=== PATIENT | male | born 1960 | race Caucasian/White ===

== ENCOUNTER 2019-01-06 19:33 | Observation (INO) | payer OTHER ==
--- NOTE | 2019-01-06 20:01 | ED ---
Syncope/Near Syncope - HPI Summary HPI Summary: This patient is a 58 year old M presenting to [facility] accompanied by son with a chief complaint of syncope that occurred and resolved [employer]. Patient reports he lost consciousness when he was sitting down to eat dinner. The patient rates the pain 0/10 in severity. Symptoms aggravated by nothing. Symptoms alleviated by nothing. Patient reports dizziness, incontinence, gasping for breath, and diaphoresis. Pt denies any fever, chills, erythema of eyes, sore throat, CP, cough, abdominal pain, N/V, dysuria, hematuria, myalgia, edema, or rash. Patient reports having similar symptoms previously. - History Of Current Complaint Chief Complaint: EDNeurologicalDeficit Time Seen by Provider: 01/06/19 19:53 Hx Obtained From: Patient Onset/Duration: Sudden Onset, Lasting Minutes, Still Present Timing: Intermittent Episode Lasting - 30 seconds Context: Witnessed Activity At Onset: At Rest Associated Head Trauma: No Aggravating Factor(s): Nothing Alleviating Factor(s): Nothing Associated Signs And Symptoms: Other - Positive dizziness, incontinence, gasping for breath, and diaphoresis. Negative fever, chills, erythema of eyes, sore throat, CP, cough, abdominal pain, N/V, dysuria, hematuria, myalgia, edema , or rash. PMH/Surg Hx/FS Hx/Imm Hx Previously Healthy: Yes Opthamlomology History: Denies: Hx Legally Blind EENT History: Denies: Hx Deafness Infectious Disease History: No Infectious Disease History: Denies: Traveled Outside the [place] in Last 30 Days - Family History Known Family History: Positive: Other - COPD and emphysema - Social History Occupation: Unemployed Lives: Alone Alcohol Use: None Hx Tobacco Use: Yes Smoking Status (MU): Current Every Day Smoker Review of Systems Positive: Skin Diaphoresis. Negative: Fever, Chills Negative: Erythema Negative: Sore Throat Negative: Chest Pain Respiratory: Other - Positive "gasping for breath" Negative: Cough Negative: Abdominal Pain, Vomiting, Nausea Positive: incontinence. Negative: dysuria, hematuria Negative: Myalgia, Edema Negative: Rash Neurological: Other - Positive dizziness Positive: Syncope All Other Systems Reviewed And Are Negative: Yes Physical Exam - Summary Physical Exam Summary: Constitutional: Well-developed, Well-nourished, Alert. (-) Distressed Skin: Warm, Dry HENT: Normocephalic; Atraumatic Eyes: Conjunctiva normal Neck: Musculoskeletal ROM normal neck. (-) JVD, (-) Stridor, (-) Tracheal deviation Cardio: Rhythm regular, rate normal, Heart sounds normal; Intact distal pulses; The pedal pulses are 2+ and symmetric. Radial pulses are 2+ and symmetric. (-) Murmur Pulmonary/Chest wall: Effort normal. (-) Respiratory distress, (-) Wheezes, (-) Rales Abd: Soft, (-) tenderness, (-) Distension, (-) Guarding, (-) Rebound Musculoskeletal: (-) Edema Lymph: (-) Cervical adenopathy Neuro: Alert, Oriented x3 Psych: Mood and affect Normal Triage Information Reviewed: Yes Vital Signs On Initial Exam: Initial Vitals Temp Pulse Resp BP Pulse Ox 96.6 F 88 20 100/68 95 01/06/19 19:39 01/06/19 19:39 01/06/19 19:39 01/06/19 19:39 01/06/19 19:39 Vital Signs Reviewed: Yes Diagnostics - Vital Signs Vital Signs Temp Pulse Resp BP Pulse Ox 01/06/19 19:39 96.6 F 88 20 100/68 95 - Laboratory Result Diagrams: 01/06/19 19:52 01/06/19 19:52 Lab Statement: Any lab studies that have been ordered have been reviewed, and results considered in the medical decision making process. - Radiology Chest XR Radiology Interpretation Completed By: ED Physician Summary of Radiographic Findings: CXR reveals, per ED physician, no acute disease - EKG 1945 Cardiac Rate: NL EKG Rhythm: Sinus Rhythm - [address] Segment: Normal Summary of EKG Findings: An EKG taken at 1945 reveals normal sinus rhythm at 89 BPM with no STEMI. Re-Evaluation - Re-Evaluation First Eval Re-Evaluation Time: 20:28 Change: Unchanged Comment: Discussed results and plan of care with pt. Course/Dx Course Of Treatment: This patient is a 58 year old M presenting to [facility] accompanied by son with a chief complaint of syncope that occurred and resolved [employer]PER[employer]OR. Patient reports he lost consciousness when he was sitting down to eat dinner. Physical Exam Findings: Nml. An EKG taken at 1945 reveals normal sinus rhythm at 89 BPM with no STEMI. CXR reveals, per ED physician, no acute disease. Bloodwork obtained. In the ED course the patient was given aspirin. Consult with Dr. Jordan (hospitalist) at 2049. He agrees to admit the patient for further evaluation. The patient is agreeable with this plan. - Diagnoses Provider Diagnoses: Syncope - Physician Notifications Discussed Care of Patient With: Rommel Jordan Time Discussed With Above Provider: 20:50 Instructed by Provider To: Other - Consult with Dr. Jordan, hospitalist, at 2049. He agrees to admit the patient for further evaluation. Discharge - Sign-Out/Discharge Documenting (check all that apply): Patient Departure - Admit to [facility] Patient Received Moderate/Deep Sedation with Procedure: No - Discharge Plan Condition: Stable Disposition: ADMITTED TO [facility] Referrals: No Primary Care Phys,NOPCP [Primary Care Provider] - - Attestation Statements Document Initiated by Scribe: Yes Documenting Scribe: Shiela Niño Provider For Whom Scribe is Documenting (Include Credential): Dr. Aram Torres MD Scribe Attestation: I, Shiela Niño, scribed for Dr. Aram Torres MD on 01/06/19 at 2111. Status of Scribe Document: Ready
[2019-01-06 20:05] LABS: Hematocrit 45 % (36-46); Hemoglobin 15.1 g/dL (14.0-18.0); Mean Corpuscular HGB Conc 34 g/dL (31-36); Mean Corpuscular Hemoglobin 31 pg (27-31); Mean Corpuscular Volume 93 fL (80-94); Mean Platelet Volume 8.5 fL (7.4-10.4); Platelet Count 344 10^3/uL (150-450); Red Blood Count 4.81 10^6 /uL (4.18-5.48); Red Cell Distribution Width 14 % (10.5-15); White Blood Count 13.6 10^3/uL (3.5-10.8)
[2019-01-06 20:22] LABS: ALT 12 U/L (7-52); AST 17 U/L (13-39); Albumin 4.3 g/dL (3.2-5.2); Albumin/Globulin Ratio 1.4 (1-3); Alkaline Phosphatase 108 U/L (34-104); Anion Gap 8 mmol/L (2-11); BUN/Creatinine Ratio 11.9 (8-20); Blood Urea Nitrogen 13 mg/dL (6-24); CO2 Carbon Dioxide 27 mmol/L (22-32); Calcium 9.2 mg/dL (8.6-10.3); Chloride 102 mmol/L (101-111); EGFR African American 83.8 (>60); EGFR Non-African American 69.2 (>60); Globulin 3.1 g/dL (2-4); Glucose 135 mg/dL (70-100); Potassium 3.5 mmol/L (3.5-5.0); Sodium 137 mmol/L (135-145); Total Protein 7.4 g/dL (6.4-8.9)
[2019-01-06] MEDS ORDERED: Aspirin 81 mg CHEW TAB* 81 MG TAB.CHEW PO ONE (20:27)
[2019-01-06 20:29] LABS: ABS Basophils 0.2 10^3/ul (0-0.2); ABS Eosinophils 0.2 10^3/ul (0-0.6); ABS Lymphocytes 5.2 10^3/ul (1.0-4.8); ABS Monocytes 0.9 10^3/ul (0-0.8); ABS Neutrophils 7.3 10^3/ul (1.5-7.7); ABS Nucleated RBC 0 10^3/ul; Eosinophil % 1.1 %; Nucleated Red Blood Cells % 0.1
[2019-01-06] MEDS ORDERED: NS 0.9% 1000 ML** 1,000 ML IV ONE (21:11)
[2019-01-06] MEDS ORDERED: Acetaminophen TAB* 325 MG PO PRN (21:31)
[2019-01-06] MEDS ORDERED: Ondansetron INJ* 2 MG/ML VIAL IV PRN (21:31)
[2019-01-06] MEDS ORDERED: Nicotine GUM* 2 MG PO PRN (21:51)
[2019-01-06] MEDS ORDERED: Lactated Ringers 1000 ML Bag* 1,000 ML IV SCH (22:00)
[2019-01-06 22:13] LABS: TSH (Thyroid Stimulating Horm) 2.91 mcIU/mL (0.34-5.60)
--- NOTE | 2019-01-07 03:16 | HP ---
CC: Jamil Elkins NP * HISTORY AND PHYSICAL: DATE OF ADMISSION: 01/06/19 PRIMARY CARE PHYSICIAN: Jamil Elkins NP. He has not seen her yet. MY ATTENDING WHILE IN THE HOSPITAL: Dr. Girish Quiroz.* (DICTATED BY HARITHA ANAYA) CHIEF COMPLAINT: Syncope. HISTORY OF PRESENT ILLNESS: Mr. Kan is a 58-year-old male with no known past medical history. The patient has not been to medical care for approximately 15 years. The patient notes of no chronic medical diagnosis. The patient, however , in the past 2 years has had approximately 10 to 15 episodes of tunnel vision where he feels lightheaded, but did not feel like he is going to necessarily pass out that usually lasts for about 5 minutes; usually, they resolve with rest. The patient can identify no provoking factors such as activity, standing up, eating or other activities that provoke these episodes. The patient has never passed out before. The patient today was in his normal state of health, was eating dinner with his sister at the dinner table and felt the same vision changes come on suddenly and then lost consciousness. The patient, according to reports, looked very pale and was gasping for breath. The patient lost control of his bladder. The patient was out for what he believes 30 seconds and then woke up disoriented. He did not remember the episode, but was able to walk to a different chair and sit down. The patient then came into the emergency department. By the time he was in the emergency department, he felt normal again. The patient has no history of seizures. The patient has hit his head before, but has no major head traumas. The patient 2 years ago had a tick bite on his abdomen, which developed some sort of rash around it. The patient has had joint pain particularly in his elbows for the past 6 months, left worse than the right, without any inflammation. The patient denies any other rashes. The patient, however, does think he has had more tick bites. 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 The patient recently had teeth removed for poor dental hygiene in preparation for dentures. The patient has had poor oral hygiene for a long period of time and feels like he put off going to the dentist more frequently than not. The patient in the emergency department had unremarkable EKG and unremarkable chest x-ray, and we were asked to evaluate the patient for admission to the hospital for a syncope of unknown origin. PAST MEDICAL HISTORY: None known. PAST SURGICAL HISTORY: Teeth removal. MEDICATIONS: None. ALLERGIES: None. FAMILY HISTORY: The patient's mother of diabetes and COPD. The patient's father in a car accident. The patient's sister has high blood pressure, well controlled. The patient has another sister with thyroid disease and 2 brothers who are healthy. SOCIAL HISTORY: The patient is a pack-a-day smoker, has been since he was a teenager. The patient drinks alcohol rarely. The patient uses marijuana rarely. The patient used to work in [employer], usually works odd jobs. The patient is and has 1 child. The patient's surrogate decision maker is his sister, Amada Aguila. REVIEW OF SYSTEMS: A 14-point review of systems was reviewed with the patient and is negative except as noted above in the HPI. PHYSICAL EXAMINATION GENERAL: The patient is a 58-year-old male who appears stated age and sitting comfortably in bed, in no acute distress. VITAL SIGNS: Temperature 96.6, pulse rate 88, respiratory rate 20, oxygen saturation 95% on room air, blood pressure 100/68. HEENT: Head: Normocephalic, atraumatic. Sclerae anicteric. No conjunctival injection. Nasal mucosa moist. Oral mucosa moist. No pharyngeal erythema, discharge, or exudate. NECK: Supple, nontender. No lymphadenopathy. No carotid bruits auscultated. No JVD. RESPIRATORY: Clear to auscultation bilaterally. No wheezes, rales, or rhonchi. Good air exchange bilaterally. CARDIAC: Regular rate and rhythm. No clicks, murmurs, gallops, or rubs. Pulses are 2+ in the bilateral dorsalis pedis, posterior tibialis, and radial areas. ABDOMEN: Soft, nontender, nondistended. Bowel sounds present and normoactive in all 4 quadrants. No hepatosplenomegaly. No abdominal bruits auscultated. No hepatojugular reflux. GENITOURINARY: No suprapubic or CVA tenderness. NEURO: Cranial nerves II through XII intact. No focal deficits. Alert and oriented x3. Cerebellar testing performed without difficulty. PSYCHIATRIC: Pleasant and cooperative. SKIN: Clean, dry, and intact. No rash. DIAGNOSTIC STUDIES/LAB DATA: Laboratory data: White blood cell count 13.6, hemoglobin 15.1, platelet count 344, D-dimer less than 200, sodium 137, potassium 3.5, chloride 102, carbon dioxide 27, anion gap 8, BUN 13, creatinine 1.09, glucose 135, lactic acid 1.9, calcium 9.2, bilirubin 0.4, AST 17, ALT 22, alkaline phosphatase 108, troponin I 0.00, protein 7.4, albumin 4.3, globulin 3.1. Studies: EKG shows normal sinus rhythm, early repolarization V2, V3 and V4, normal axis, no ST segment elevation or depression, no hypertrophy or enlargement, no other blocks. QTc of 454. Chest x-ray to this provider's view shows no active cardiopulmonary disease, possible hyperinflation. ASSESSMENT/PLAN: Impression: Mr. Kan is a 58-year-old male with no significant past medical history, who passed out today after having approximately 10 to 15 episodes of similar presyncope over the past 2 years, who is being admitted to the hospital for evaluation for syncope. 1. Syncope. The patient's syncope has no defining clinical features pathognomic for any specific etiology. The patient was not standing up, the patient was not in pain or had nausea or other common triggers for vasovagal syncope. The patient has no consistent signs of heart failure. The patient had no palpitations or chest pain; however, the patient does have risk factors for heart disease. We will get an echocardiogram, trend troponins, repeat an EKG in the morning. The patient has early repolarization, no other ischemic changes. Atrial fibrillation and ventricular arrhythmia are in the differential. The patient has no siblings or other relatives who have young of sudden cardiac . The patient lost control of his bladder. He did not bite his tongue. The patient did have what sounded to be confusion after he woke up. The patient will have an EEG at some point if indicated. Long-term monitoring on a Holter may also be indicated. The patient has no other recent illness. It is unlikely that the patient has Lyme disease given that his only complaints are joint arthritis and possible bradycardia, but we will test him for Lyme disease and institute treatment if it appears he has active Lyme carditis. The patient will be monitored on telemetry. 2. Tobacco abuse. The patient should be encouraged to quit smoking and follow routinely with medical care. 3. DVT prophylaxis. The patient is low risk. The patient will be up at [facility]. 4. Code status. The patient likes to be a full code. The patient's surrogate decision maker will be his sister as above. TIME SPENT: Approximately 60 minutes was spent on the admission of this patient , 30 of which was spent [id number] with the patient obtaining history and physical and discussing treatment plan. This plan was discussed with my attending, Dr. Girish Quiroz and he is in agreement. HARITHA ANAYA [id number]/[facility] #: [id number] KARELY
[2019-01-07 04:22] LABS: Urine Appearance Clear; Urine Bacteria Absent (Absent); Urine Bilirubin Negative (Negative); Urine Blood 2+ (Negative); Urine Color Straw; Urine Glucose Negative (Negative); Urine Ketones Negative (Negative); Urine Nitrite Negative (Negative); Urine Protein Negative (Negative); Urine Red Blood Cell Trace(0-2/hpf) (Absent); Urine Specific Gravity 1.006 (1.010-1.030); Urine Urobilinogen Negative (Negative); Urine White Blood Cell Absent (Absent)
[2019-01-07 06:18] LABS: ABS Basophils 0.1 10^3/ul (0-0.2); ABS Eosinophils 0.2 10^3/ul (0-0.6); ABS Lymphocytes 3.5 10^3/ul (1.0-4.8); ABS Monocytes 0.9 10^3/ul (0-0.8); ABS Neutrophils 7.8 10^3/ul (1.5-7.7); ABS Nucleated RBC 0 10^3/ul; Eosinophil % 1.5 %; Hematocrit 39 % (36-46); Hemoglobin 12.9 g/dL (14.0-18.0); Lymphocyte % 28.2 %; Mean Corpuscular HGB Conc 33 g/dL (31-36); Mean Corpuscular Hemoglobin 31 pg (27-31); Mean Corpuscular Volume 93 fL (80-94); Mean Platelet Volume 8.6 fL (7.4-10.4); Nucleated Red Blood Cells % 0; Platelet Count 242 10^3/uL (150-450); Red Cell Distribution Width 14 % (10.5-15); White Blood Count 12.4 10^3/uL (3.5-10.8)
[2019-01-07 06:37] LABS: BUN/Creatinine Ratio 17.1 (8-20); Calcium 8.6 mg/dL (8.6-10.3); EGFR African American 116.4 (>60); EGFR Non-African American 96.2 (>60); HDL Cholesterol 32.6 mg/dL; Magnesium 1.9 mg/dL (1.9-2.7); Potassium 3.9 mmol/L (3.5-5.0)
--- NOTE | 2019-01-07 15:04 | ECHO ---
Patient: DAVID TAO [facility] Rec#: [id number] : 1960 Date: 01/07/2019 Age: 58y Height: 183 cm / 72.0 in Weight: 73 kg / 160.9 lbs Sex: M BSA: 1.94 Room#: [facility] Admit Date#: 01/06/2019 Type: Inpatient Referring: CHANDNI Reading: Eder Talbert MD Sports Internship[facility] Tran[facility] Echocardiogram Indication: Syncope BP: 97/63 HR: 68 Rhythm: NSR Findings History: No known cardiac history. Technical Comments: The study quality is fair. Completed at 1255. Left Ventricle: The left ventricular chamber size is normal. Mild concentric left ventricular hypertrophy is observed. Global left ventricular wall motion and contractility are within normal limits. There is normal left ventricular systolic function. The estimated ejection fraction is 55-60%. There is no consistent Doppler evidence of clinically significant diastolic dysfunction. Left Atrium: The left atrial chamber size is normal. Right Ventricle: Moderator Band present. The right ventricular cavity size is normal. The right ventricular global systolic function is normal. Right Atrium: The right atrial cavity size is normal. Aortic Valve: The aortic valve is trileaflet. There is no evidence of aortic valve thickening. There is trace to mild aortic regurgitation. There is no evidence of aortic stenosis. Mitral Valve: The mitral valve leaflets are mildly thickened. There is a trace of mitral regurgitation. There is no evidence of mitral stenosis. Tricuspid Valve: The tricuspid valve leaflets are normal. There is trace tricuspid regurgitation. Unable to estimate the right ventricular systolic pressure. There is no tricuspid stenosis. Pulmonic Valve: The pulmonic valve appears normal. There is a trace pulmonic regurgitation. There is no pulmonic stenosis. Pericardium: There is no significant pericardial effusion. Aorta: There is no dilatation of the ascending aorta. There is no dilatation of the aortic arch. The aortic root is normal in size. Pulmonary Artery: The main pulmonary artery appears normal. Venous: The inferior vena cava appears normal in size. There is a greater than 50% respiratory change in the inferior vena cava dimension. Conclusions Mild concentric left ventricular hypertrophy is observed. Global left ventricular wall motion and contractility are within normal limits. The estimated ejection fraction is 55-60%. The right ventricular global systolic function is normal. There is trace to mild aortic regurgitation. There is a trace of mitral regurgitation. There is trace tricuspid regurgitation. Unable to estimate the right ventricular systolic pressure. There is no significant pericardial effusion. Measurements Name Value Normal Range RVIDd (AP) 2D 3.5 cm (0.9 - 2.6) RVDdMajor (2D) 3.8 cm (2.2 - 4.4) RAd ISD 4CH 4.8 cm (3.4 - 4.9) RA (A4C)W 3.9 cm (2.9 - 4.6) IVSd (2D) 1.1 cm (0.6 - 1) LVPWd (2D) 1.1 cm (0.6 - 1) LVIDd (2D) 4.5 cm (3.6 - 5.4) LVIDs (2D) 3.1 cm - LV FS (2D) 40 % (25 - 45) Aortic Annulus 2.1 cm (1.4 - 2.6) Ao root diameter (2D) 2.9 cm (2.1 - 3.5) Ascending Ao 2.8 cm (2.1 - 3.4) Aortic arch 2.5 cm (1.8 - 3.4) LA dimension (AP) 2D 2.9 cm (2.3 - 3.8) LAd ISD 4CH 5.1 cm (2.9 - 5.3) LA ISD 4CH W 4.2 cm (2.5 - 4.5) Name Value Normal Range LA ESV BP (A/L) index 30 ml/m2 - Name Value Normal Range MV E-wave Vmax 1 m/sec - MV deceleration time 243 msec - MV A-wave Vmax 0.8 m/sec - MV E:A ratio 1.2 ratio - LV septal e' Vmax 0.1 m/sec - LV lateral e' Vmax 0.12 m/sec - LV E:e' septal ratio 10 ratio - LV E:e' lateral ratio 8.3 ratio - Name Value Normal Range AV Vmax 1.4 m/sec - AV VTI 28 cm - AV peak gradient 7 mmHg - AV mean gradient 3 mmHg - LVOT Vmax 1.1 m/sec - LVOT VTI 22 cm - LVOT peak gradient 5 mmHg - LVOT mean gradient 3 mmHg - ADDIE Vmax 0.9 m/sec - Name Value Normal Range IVC diameter 1.9 cm - Name Value Normal Range PV Vmax 0.8 m/sec - PV peak gradient 3 mmHg -
[2019-01-07 17:23] VITALS: BP 118/64
--- NOTE | 2019-01-08 01:37 | DS ---
DISCHARGE SUMMARY: DATE OF ADMISSION: DATE OF DISCHARGE: 01/07/19 HISTORY: This 58-year-old man presented with syncope. He says he was at dinner with his son and other family members. Near the end of the meal, he got the sensation of tunneled vision and then lightheadedness. He does not remember what happened after that. He says his son thought he was sleeping but then he had difficulty waking him, and when he woke up, he had wet himself. He walked to a nearby chair. He does not really remember this part. The patient has had a number of episodes of tunneled vision in the past but never have led to syncope. He has maybe 2 or 3 a year. This has been going on for a couple of years perhaps. The patient has no regular medical care and takes no medications at home. He does continue to smoke. He does not drink more than a modest amount of alcohol. He was not drinking alcohol yesterday. The patient was monitored on the telemetry unit, had 3 troponins all of which were within normal limits. He had an echocardiogram. The report is not yet available. An EEG was ordered but was not done. It will be completed as an outpatient. At this point, it is unclear if the patient had syncope due to an arrhythmia or had a seizure or some other cause of syncope. I advised the patient not to drive until he was cleared by his primary provider. He has already setup an appointment with [facility] to establish himself with a provider there in about 1 week from today. FINAL DIAGNOSIS: Syncope. DISCHARGE MEDICATIONS: None. DISCHARGE CONDITION: Stable. DISCHARGE DISPOSITION: Home. [id number]/[facility] #: [id number] KARELY
== END 2019-01-07 19:20 | disposition home or self-care (01) ==
LOC: ED 19:33 → MEDTELE 21:31
PROVIDERS: ADMIT Internal Medicine; ATTEND Internal Medicine
DX: R55 Syncope and collapse (principal); R42 Dizziness and giddiness; H53.489 Generalized contraction of visual field, unspecified eye; F17.210 Nicotine dependence, cigarettes, uncomplicated
CPT/HCPCS: 36415; 70450; 71045; 80048; 80053; 80061; 81003; 81015; 83036; 83605; 83735; 84443; 84484; 85025; 85060; 85379; 86618; 93005; 93306; 96361; 96374; 99284; G0378

== ENCOUNTER 2020-12-20 23:00 | Observation (INO) ==
[2020-12-20] MEDS ORDERED: NS 0.9% 1000 ml BAG 1,000 ML IV ONE (23:15)
[2020-12-20] MEDS ORDERED: Iodixanol (CONTRAST) 320 MG/ML 100 ML SDV IV ONE (23:22)
[2020-12-20 23:40] LABS: Activated Partial Thrombo Time 29.2 seconds (26.0-38.0); INR 0.97 (0.82-1.09)
[2020-12-20 23:43] LABS: Albumin/Globulin Ratio 1.4 (1-3); BUN/Creatinine Ratio 16.7 (8-20); Calcium 9.1 mg/dL (8.6-10.3); EGFR African American 112.4 (>60); EGFR Non-African American 92.9 (>60); Globulin 2.8 g/dL (2-4); HDL Cholesterol 36.3 mg/dL; Potassium 3.6 mmol/L (3.5-5.0); Total Bilirubin 0.3 mg/dL (0.2-1.0); Total Protein 6.8 g/dL (6.4-8.9)
[2020-12-20 23:58] LABS: ABS Basophils 0.1 10^3/ul (0-0.2); ABS Eosinophils 0.2 10^3/ul (0-0.6); ABS Monocytes 0.8 10^3/ul (0-0.8); ABS Neutrophils 6.9 10^3/ul (1.5-7.7); Eosinophil % 1.7 %; Hematocrit 39 % (42-52); Hemoglobin 13.2 g/dL (14.0-18.0); Lymphocyte % 27.5 %; Mean Corpuscular HGB Conc 34 g/dL (31-36); Mean Corpuscular Hemoglobin 32 pg (27-31); Mean Corpuscular Volume 94 fL (80-94); Mean Platelet Volume 8.1 fL (7.4-10.4); Platelet Count 339 10^3/uL (150-450); Red Blood Count 4.12 10^6 /uL (4.18-5.48); Red Cell Distribution Width 14 % (10-15)
[2020-12-21 03:35] LABS: Urine Appearance Clear; Urine Bilirubin Negative (Negative); Urine Blood 2+ (Negative); Urine Color Yellow; Urine Glucose Negative (Negative); Urine Ketones Negative (Negative); Urine Nitrite Negative (Negative); Urine Protein Negative (Negative); Urine Specific Gravity 1.058 (1.002-1.030); Urine Urobilinogen Negative (Negative)
[2020-12-21 03:41] LABS: Urine Bacteria Absent (Absent); Urine Red Blood Cell 3+(>10/hpf) (Absent); Urine White Blood Cell Absent (Absent)
[2020-12-21] MEDS: Heparin 5000 UNITS/ML 1 mL VIAL SUBCUT SCH ×2 (09:54→21:28)
[2020-12-22] MEDS: Heparin 5000 UNITS/ML 1 mL VIAL SUBCUT SCH (08:01)
[2020-12-22 12:09] VITALS: BP 124/68
== END 2020-12-22 15:05 | disposition home or self-care (01) ==
LOC: ED 23:00 → MEDTELE 23:00
PROVIDERS: ADMIT Student in an Organized Health Care Education/Training Program; ATTEND Internal Medicine